=== PATIENT | female | born 1985 | race Caucasian/White ===

== ENCOUNTER 2022-10-01 03:29 | Emergency (ER) | payer OTHER ==
[~2022-10-01] VITALS: Ht 160 cm; Wt 61.2 kg
[2022-10-01 04:12] LABS: BASO % 0.5 % (0.0-1.0); EOS # 0.2 10*3/uL (0.0-0.4); EOS % 1.8 % (1.0-4.0); HEMATOCRIT 30.1 % (37.0-47.0); LYMPH % 12.1 % (27.0-41.0); MEAN CELL VOLUME 80.9 fl (81.0-99.0); MEAN CORPUSCULAR HGB 26.1 pg (27.0-31.0); MEAN CORPUSCULAR HGB CONC 32.2 g/dl (33.0-37.0); MEAN PLATELET VOLUME 9.3 fl (9.6-12.3); MONO # 0.7 10*3/uL (0.1-1.0); MONO % 8.5 % (3.0-9.0); NEUT # 6.6 10*3/uL (2.3-7.9); NEUT % 76.7 % (47.0-73.0); PLATELET COUNT AUTOMATED 313 10*3/uL (130-400); RED BLOOD COUNT 3.72 10*6/uL (4.10-5.10); RED CELL DISTRI WIDTH 18.7 % (0-14.5); WHITE BLOOD COUNT 8.5 10*3/uL (4.8-10.8)
[2022-10-01 04:23] LABS: ACT PARTIAL THROMBO TIME 26.9 SECONDS (20.0-32.1); INTERNATIONAL NORM RATIO 1.1 (2.0-3.5)
[2022-10-01 04:43] LABS: ALKALINE PHOSPHATASE 122 U/L (45-117); BUN 4 mg/dl (7-24); CHLORIDE 97 mmol/L (98-107); CREATININE 0.85 mg/dL (0.55-1.02); LIPASE 92 U/L (73-393); POTASSIUM 3.5 mmol/L (3.5-5.1); SGOT/AST 114 IU/L (3-35); SGPT/ALT 79 U/L (12-78); SODIUM 133 mmol/L (136-145); TOTAL PROTEIN 6.7 gm/dL (6.4-8.2)
== END 2022-10-01 06:19 | disposition home or self-care (01) ==
LOC: ED 03:29
PROVIDERS: Family Medicine
DX: R06.02 Shortness of breath (principal); T42.3X5A Adverse effect of barbiturates, initial encounter; R51.9 Headache, unspecified; R41.0 Disorientation, unspecified; Y92.89 Other specified places as the place of occurrence of the external cause